=== PATIENT | male | born 1985 | race Caucasian/White ===

== ENCOUNTER 2017-06-05 22:31 | Inpatient (IN) ==
[2017-09-19] MEDS ORDERED: Beneprotein Powder Packet NG/OG ONE ×2 (01:00→09:00)
[2017-09-19] MEDS ORDERED: Beneprotein Powder Packet G-TUBE ONE (01:00)
[2017-09-19] MEDS ORDERED: RESP: Racemic Epinephrine 2.25% 0.5 ML Neb NEB PRN (01:00)
[2017-09-19] MEDS ORDERED: Bisacodyl 10 MG Supp RECTAL PRN (01:00)
[2017-09-19] MEDS: Amantadine Liq 100 MG/10 ML UDC PO SCH ×2 (05:46→12:26)
[2017-09-19] MEDS: Sod Chloride 0.9% Inj 1,000 ML IV.SIG SCH ×3 (05:47→15:26)
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
[2017-09-19] MEDS ORDERED: Famotidine 20 MG Tablet G-TUBE SCH (09:00)
[2017-09-19 09:55] LABS: Baso # (Auto) 0.1 th/mm3 (0.0-0.2); Baso % (Auto) 0.9 % (0.0-2.0); Eos # (Auto) 0.1 th/mm3 (0.0-0.4); Eos % (Auto) 2.1 % (0.0-4.0); Hematocrit 31.1 % (39.0-51.0); Hemoglobin 10.5 gm/dL (13.0-17.0); Lymph # (Auto) 1.2 th/mm3 (1.0-4.8); Mean Corpuscular HGB Conc 33.8 % (32.0-36.0); Mean Corpuscular Hemoglobin 29.9 pg (27.0-34.0); Mean Corpuscular Volume 88.4 fL (80.0-100.0); Mean Platelet Volume 10.5 fL (7.0-11.0); Mono # (Auto) 0.4 th/mm3 (0.0-0.9); Mono % (Auto) 6.3 % (0.0-8.0); Neut # (Auto) 4.8 th/mm3 (1.8-7.7); Neut % (Auto) 72.7 % (16.0-70.0); Platelet Count 173 th/mm3 (150-450); Red Blood Count 3.51 mil/mm3 (4.50-5.90); Red Cell Distribution Width 15.4 % (11.6-17.2); White Blood Count 6.5 th/mm3 (4.0-11.0)
[2017-09-19] MEDS: Docusate Sodium Liq 100 MG/10 ML UDC NG/OG PRN (10:12)
[2017-09-19] MEDS: Hyoscyamine Liq Drops 0.125 MG/ML 15 ML Bottle NG/OG PRN (10:13)
[2017-09-19] MEDS: Artificial Tears Opth Oint 3.5 GM Tube EACH EYE SCH ×2 (10:14→21:03)
[2017-09-19] MEDS: Baclofen 10 MG Tablet NG/OG SCH ×2 (10:14→21:48)
[2017-09-19] MEDS: Enoxaparin Inj 40 MG/0.4 ML Syringe SQ SCH (10:15)
[2017-09-19] MEDS: Famotidine 20 MG Tablet NG/OG SCH ×2 (10:17→21:02)
[2017-09-19 12:10] LABS: Anion Gap 1 meq/L (5-15); Blood Urea Nitrogen 9 mg/dL (7-18); Calcium 9.3 mg/dL (8.5-10.1); Carbon Dioxide 36.2 meq/L (21.0-32.0); Chloride 106 meq/L (98-107); Glomerular Filtration Rate Greater Than 89 mL/min (>89); Glucose,Random 87 mg/dL (74-106); Potassium 3.4 meq/L (3.5-5.1); Sodium 143 meq/L (136-145)
[2017-09-19] MEDS: Acetaminophen 160 MG/5 ML Liq 5 ML UDC NG/OG SCH ×2 (13:24→21:49)
[2017-09-19] MEDS ORDERED: Potassium Chloride 20 MEQ Pwd Pkt NG/OG ONE (16:00)
[2017-09-19] MEDS ORDERED: Vancomycin Consult Pharmacy 1 EACH OTHER SCH (16:00)
[2017-09-19] MEDS ORDERED: Vancomycin Inj 1,000 MG in Sodium Chlor 0.9% Inj 250 ML IV.SIG SCH (17:00)
[2017-09-19] MEDS ORDERED: Pharmacy Ordered Lab Info OTHER ONE (17:00)
[2017-09-19] MEDS: Vancomycin Inj 1,000 MG in Sodium Chlor 0.9% Inj 250 ML IV.SIG SCH (18:00)
[2017-09-20] MEDS: Baclofen 10 MG Tablet NG/OG SCH ×3 (00:41→16:32)
[2017-09-20] MEDS: Acetaminophen 160 MG/5 ML Liq 5 ML UDC NG/OG SCH ×2 (00:42→13:07)
[2017-09-20] MEDS: Sod Chloride 0.9% Inj 1,000 ML IV.SIG SCH ×3 (00:43→17:56)
[2017-09-20] MEDS: Vancomycin Inj 1,000 MG in Sodium Chlor 0.9% Inj 250 ML IV.SIG SCH ×3 (02:35→17:57)
[2017-09-20] MEDS: Amantadine Liq 100 MG/10 ML UDC PO SCH ×2 (05:38→13:05)
[2017-09-20 07:37] LABS: Anion Gap 8 meq/L (5-15); Blood Urea Nitrogen 8 mg/dL (7-18); Calcium 9.1 mg/dL (8.5-10.1); Carbon Dioxide 26.7 meq/L (21.0-32.0); Chloride 108 meq/L (98-107); Glomerular Filtration Rate Greater Than 89 mL/min (>89); Glucose,Random 81 mg/dL (74-106); Potassium 3.8 meq/L (3.5-5.1); Sodium 143 meq/L (136-145)
[2017-09-20] MEDS: Famotidine 20 MG Tablet NG/OG SCH ×2 (08:15→20:04)
[2017-09-20] MEDS: Enoxaparin Inj 40 MG/0.4 ML Syringe SQ SCH (11:00)
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
[2017-09-20] MEDS: Beneprotein Powder Packet PO SCH (16:07)
[2017-09-20] MEDS ORDERED: Pharmacy Ordered Lab Info OTHER ONE (17:45)
[2017-09-20] MEDS: Artificial Tears Opth Oint 3.5 GM Tube EACH EYE SCH (20:06)
[2017-09-21] MEDS: Acetaminophen 160 MG/5 ML Liq 5 ML UDC NG/OG SCH ×2 (01:00→12:41)
[2017-09-21] MEDS: Baclofen 10 MG Tablet NG/OG SCH ×4 (01:00→18:04)
[2017-09-21] MEDS: Vancomycin Inj 1,000 MG in Sodium Chlor 0.9% Inj 250 ML IV.SIG SCH ×3 (04:05→18:06)
[2017-09-21] MEDS: Amantadine Liq 100 MG/10 ML UDC PO SCH ×2 (06:18→12:41)
[2017-09-21] MEDS: Beneprotein Powder Packet PO SCH ×4 (06:19→22:22)
[2017-09-21] MEDS: Famotidine 20 MG Tablet NG/OG SCH ×2 (09:24→20:04)
[2017-09-21] MEDS: Enoxaparin Inj 40 MG/0.4 ML Syringe SQ SCH (12:41)
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
[2017-09-21] MEDS: Sod Chloride 0.9% Inj 1,000 ML IV.SIG SCH (15:45)
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
[2017-09-21] MEDS: Artificial Tears Opth Oint 3.5 GM Tube EACH EYE SCH (20:05)
[2017-09-22] MEDS: Baclofen 10 MG Tablet NG/OG SCH ×3 (01:04→17:37)
[2017-09-22] MEDS: Acetaminophen 160 MG/5 ML Liq 5 ML UDC NG/OG SCH ×2 (01:05→13:16)
[2017-09-22] MEDS: Vancomycin Inj 1,000 MG in Sodium Chlor 0.9% Inj 250 ML IV.SIG SCH ×3 (01:31→17:38)
[2017-09-22] MEDS: Amantadine Liq 100 MG/10 ML UDC PO SCH ×2 (05:27→13:15)
[2017-09-22] MEDS: Famotidine 20 MG Tablet NG/OG SCH ×2 (08:56→20:41)
[2017-09-22] MEDS: Beneprotein Powder Packet PO SCH ×3 (08:57→22:17)
[2017-09-22] MEDS: Enoxaparin Inj 40 MG/0.4 ML Syringe SQ SCH (12:18)
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
[2017-09-22] MEDS: Sod Chloride 0.9% Inj 1,000 ML IV.SIG SCH (17:37)
[2017-09-22] MEDS: Artificial Tears Opth Oint 3.5 GM Tube EACH EYE SCH (20:42)
[2017-09-23] MEDS: Acetaminophen 160 MG/5 ML Liq 5 ML UDC NG/OG SCH ×2 (00:34→13:01)
[2017-09-23] MEDS: Baclofen 10 MG Tablet NG/OG SCH ×3 (00:34→18:13)
[2017-09-23] MEDS: Vancomycin Inj 1,000 MG in Sodium Chlor 0.9% Inj 250 ML IV.SIG SCH ×3 (01:27→18:14)
[2017-09-23] MEDS: Amantadine Liq 100 MG/10 ML UDC PO SCH ×2 (05:47→13:01)
[2017-09-23] MEDS: Beneprotein Powder Packet PO SCH ×3 (06:14→22:24)
[2017-09-23] MEDS: Famotidine 20 MG Tablet NG/OG SCH ×2 (08:43→20:16)
[2017-09-23] MEDS: Enoxaparin Inj 40 MG/0.4 ML Syringe SQ SCH (11:53)
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
[2017-09-23] MEDS: Sod Chloride 0.9% Inj 1,000 ML IV.SIG SCH (18:13)
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
[2017-09-23] MEDS: Artificial Tears Opth Oint 3.5 GM Tube EACH EYE SCH (20:17)
[2017-09-24] MEDS: Baclofen 10 MG Tablet NG/OG SCH ×3 (00:06→16:34)
[2017-09-24] MEDS: Acetaminophen 160 MG/5 ML Liq 5 ML UDC NG/OG SCH ×2 (00:06→20:06)
[2017-09-24] MEDS: Vancomycin Inj 1,000 MG in Sodium Chlor 0.9% Inj 250 ML IV.SIG SCH ×3 (01:28→10:03)
[2017-09-24] MEDS ORDERED: Pharmacy Ordered Lab Info OTHER ONE (01:45)
[2017-09-24] MEDS: Amantadine Liq 100 MG/10 ML UDC PO SCH (05:27)
[2017-09-24] MEDS: Beneprotein Powder Packet PO SCH (06:26)
[2017-09-24] MEDS: Hyoscyamine Liq Drops 0.125 MG/ML 15 ML Bottle NG/OG PRN (10:03)
[2017-09-24] MEDS: Famotidine 20 MG Tablet NG/OG SCH ×2 (10:04→20:53)
[2017-09-24] MEDS: Enoxaparin Inj 40 MG/0.4 ML Syringe SQ SCH (10:04)
[2017-09-24] MEDS: Amantadine Liq 100 MG/10 ML UDC NG/OG SCH (12:00)
[2017-09-24] MEDS: Beneprotein Powder Packet NG/OG SCH ×2 (15:00→23:16)
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
[2017-09-24 20:21] LABS: Albumin 3.1 g/dL (3.4-5.0); Anion Gap 11 meq/L (5-15); Aspartate Aminotransferase 13 U/L (15-37); Blood Urea Nitrogen 12 mg/dL (7-18); Calcium 9.6 mg/dL (8.5-10.1); Carbon Dioxide 26.8 meq/L (21.0-32.0); Chloride 107 meq/L (98-107); Glomerular Filtration Rate Greater Than 89 mL/min (>89); Glucose,Random 118 mg/dL (74-106); Potassium 3.3 meq/L (3.5-5.1); Sodium 145 meq/L (136-145)
[2017-09-24 20:22] LABS: Alanine Aminotransferase 32 U/L (12-78)
[2017-09-24 20:24] LABS: Alkaline Phosphatase 124 U/L (45-117); Total Protein 6.8 g/dL (6.4-8.2)
[2017-09-24] MEDS: Artificial Tears Opth Oint 3.5 GM Tube EACH EYE SCH (20:53)
[2017-09-25] MEDS: Baclofen 10 MG Tablet NG/OG SCH ×3 (02:09→17:00)
[2017-09-25] MEDS: Amantadine Liq 100 MG/10 ML UDC NG/OG SCH ×2 (06:13→12:00)
[2017-09-25] MEDS: Beneprotein Powder Packet NG/OG SCH ×2 (06:13→15:00)
[2017-09-25 09:22] LABS: Glomerular Filtration Rate Greater Than 89 mL/min (>89)
[2017-09-25 09:25] LABS: Vancomycin,Random 3.5 Comment
[2017-09-25] MEDS: Famotidine 20 MG Tablet NG/OG SCH ×2 (09:35→21:11)
[2017-09-25] MEDS: Enoxaparin Inj 40 MG/0.4 ML Syringe SQ SCH (10:06)
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
[2017-09-25] MEDS ORDERED: Potassium Chloride 25 MEQ Effervescent Tablet NG/OG ONE (11:15)
[2017-09-25] MEDS: Vancomycin Inj 1,250 MG in Sodium Chlor 0.9% Inj 250 ML IV.SIG SCH (12:00)
[2017-09-25] MEDS: Artificial Tears Opth Oint 3.5 GM Tube EACH EYE SCH (21:13)
[2017-09-26] MEDS: Vancomycin Inj 1,250 MG in Sodium Chlor 0.9% Inj 250 ML IV.SIG SCH ×3 (00:34→23:53)
[2017-09-26] MEDS: Amantadine Liq 100 MG/10 ML UDC NG/OG SCH ×2 (05:57→12:00)
[2017-09-26] MEDS: Beneprotein Powder Packet NG/OG SCH ×4 (07:25→23:54)
[2017-09-26] MEDS: Famotidine 20 MG Tablet NG/OG SCH ×2 (08:24→20:24)
[2017-09-26] MEDS: Baclofen 10 MG Tablet NG/OG SCH ×3 (08:24→19:58)
[2017-09-26 10:39] LABS: Anion Gap 10 meq/L (5-15); Blood Urea Nitrogen 9 mg/dL (7-18); Calcium 9.8 mg/dL (8.5-10.1); Chloride 104 meq/L (98-107); Glomerular Filtration Rate Greater Than 89 mL/min (>89); Glucose,Random 93 mg/dL (74-106); Potassium 3.7 meq/L (3.5-5.1); Sodium 142 meq/L (136-145)
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
[2017-09-26] MEDS: Enoxaparin Inj 40 MG/0.4 ML Syringe SQ SCH (11:00)
--- NOTE | 2017-09-26 17:25 | MG ---
cc: Harrison Allred MD, PhD DATE OF STUDY: 09/26/2017. TEST NUMBER: [id number]. TECHNIQUE: A 17-channel EEG. DESCRIPTION: The background rhythm shows generalized slowing in the theta frequency at 6 Hz. No lateralizing features identified. There are no epileptiform discharges present. There is some muscle artifact present. Photic results in a symmetric driving response. INTERPRETATION: Mildly abnormal study consistent with a mild degree of encephalopathy. No epileptiform features are seen. Harrison Alrled MD, PhD KO/TL , 12:21 PM , 12:47 PM
[2017-09-26] MEDS: Artificial Tears Opth Oint 3.5 GM Tube EACH EYE SCH (20:24)
[2017-09-27] MEDS: Baclofen 10 MG Tablet NG/OG SCH ×3 (01:04→16:09)
[2017-09-27] MEDS: Amantadine Liq 100 MG/10 ML UDC NG/OG SCH ×2 (05:54→12:27)
[2017-09-27] MEDS: Beneprotein Powder Packet NG/OG SCH ×3 (06:06→23:00)
[2017-09-27] MEDS: Famotidine 20 MG Tablet NG/OG SCH ×2 (08:42→22:04)
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
[2017-09-27 11:44] LABS: Baso # (Auto) 0.1 th/mm3 (0.0-0.2); Baso % (Auto) 1.5 % (0.0-2.0); Eos # (Auto) 0.2 th/mm3 (0.0-0.4); Eos % (Auto) 4.7 % (0.0-4.0); Hemoglobin 11.7 gm/dL (13.0-17.0); Lymph # (Auto) 1.3 th/mm3 (1.0-4.8); Lymph % (Auto) 26.4 % (9.0-44.0); Mean Corpuscular HGB Conc 33.4 % (32.0-36.0); Mean Corpuscular Hemoglobin 29.7 pg (27.0-34.0); Mean Corpuscular Volume 89.1 fL (80.0-100.0); Mean Platelet Volume 9.9 fL (7.0-11.0); Mono # (Auto) 0.4 th/mm3 (0.0-0.9); Mono % (Auto) 8.2 % (0.0-8.0); Neut % (Auto) 59.2 % (16.0-70.0); Platelet Count 193 th/mm3 (150-450); Red Blood Count 3.93 mil/mm3 (4.50-5.90); Red Cell Distribution Width 15.7 % (11.6-17.2); White Blood Count 5.1 th/mm3 (4.0-11.0)
[2017-09-27] MEDS ORDERED: Pharmacy Ordered Lab Info OTHER ONE (11:45)
[2017-09-27] MEDS: Enoxaparin Inj 40 MG/0.4 ML Syringe SQ SCH (12:26)
[2017-09-27] MEDS: Vancomycin Inj 1,250 MG in Sodium Chlor 0.9% Inj 250 ML IV.SIG SCH (12:27)
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
[2017-09-27 12:50] LABS: Anion Gap 10 meq/L (5-15); Blood Urea Nitrogen 10 mg/dL (7-18); Calcium 10.4 mg/dL (8.5-10.1); Carbon Dioxide 28.1 meq/L (21.0-32.0); Chloride 104 meq/L (98-107); Glomerular Filtration Rate Greater Than 89 mL/min (>89); Glucose,Random 90 mg/dL (74-106); Sodium 142 meq/L (136-145)
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
[2017-09-27] MEDS: Vancomycin Inj 1,000 MG in Sodium Chlor 0.9% Inj 250 ML IV.SIG SCH (20:00)
[2017-09-27] MEDS: Artificial Tears Opth Oint 3.5 GM Tube EACH EYE SCH (21:00)
[2017-09-28] MEDS: Baclofen 10 MG Tablet NG/OG SCH ×3 (01:00→17:06)
[2017-09-28] MEDS: Vancomycin Inj 1,000 MG in Sodium Chlor 0.9% Inj 250 ML IV.SIG SCH (04:28)
[2017-09-28] MEDS: Amantadine Liq 100 MG/10 ML UDC NG/OG SCH ×2 (06:32→13:46)
[2017-09-28] MEDS: Famotidine 20 MG Tablet NG/OG SCH ×2 (08:37→21:22)
[2017-09-28] MEDS: Beneprotein Powder Packet NG/OG SCH ×2 (08:39→17:06)
[2017-09-28] MEDS: Enoxaparin Inj 40 MG/0.4 ML Syringe SQ SCH (10:42)
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
[2017-09-28] MEDS ORDERED: Ciprofloxacin 500 MG Tablet PO SCH (21:00)
[2017-09-28] MEDS: Artificial Tears Opth Oint 3.5 GM Tube EACH EYE SCH (21:00)
[2017-09-29] MEDS: Baclofen 10 MG Tablet NG/OG SCH ×3 (00:39→17:10)
[2017-09-29] MEDS: Beneprotein Powder Packet NG/OG SCH ×4 (01:09→23:21)
[2017-09-29] MEDS ORDERED: Pharmacy Ordered Lab Info OTHER ONE (03:45)
[2017-09-29] MEDS: Amantadine Liq 100 MG/10 ML UDC NG/OG SCH ×2 (05:10→12:09)
[2017-09-29] MEDS: Famotidine 20 MG Tablet NG/OG SCH ×2 (08:59→21:06)
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
[2017-09-29 09:57] LABS: Glomerular Filtration Rate Greater Than 89 mL/min (>89)
[2017-09-29] MEDS: Enoxaparin Inj 40 MG/0.4 ML Syringe SQ SCH ×2 (11:30→12:09)
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
[2017-09-29] MEDS: Artificial Tears Opth Oint 3.5 GM Tube EACH EYE SCH (21:09)
[2017-09-30] MEDS: Baclofen 10 MG Tablet NG/OG SCH ×3 (03:09→16:35)
[2017-09-30] MEDS: Amantadine Liq 100 MG/10 ML UDC NG/OG SCH ×2 (06:16→12:00)
[2017-09-30] MEDS: Beneprotein Powder Packet NG/OG SCH ×3 (06:36→22:59)
[2017-09-30] MEDS: Famotidine 20 MG Tablet NG/OG SCH ×2 (08:45→21:38)
[2017-09-30] MEDS: Enoxaparin Inj 40 MG/0.4 ML Syringe SQ SCH (11:00)
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
[2017-09-30] MEDS: Artificial Tears Opth Oint 3.5 GM Tube EACH EYE SCH (21:40)
[2017-10-01] MEDS: Baclofen 10 MG Tablet NG/OG SCH ×3 (01:22→17:37)
[2017-10-01] MEDS: Amantadine Liq 100 MG/10 ML UDC NG/OG SCH ×2 (05:58→12:00)
[2017-10-01] MEDS: Beneprotein Powder Packet NG/OG SCH ×3 (06:00→23:29)
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
[2017-10-01] MEDS: Famotidine 20 MG Tablet NG/OG SCH ×2 (09:53→21:13)
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
[2017-10-01] MEDS: Artificial Tears Opth Oint 3.5 GM Tube EACH EYE SCH (21:13)
[2017-10-02] MEDS: Baclofen 10 MG Tablet NG/OG SCH ×3 (01:18→17:00)
[2017-10-02] MEDS: Amantadine Liq 100 MG/10 ML UDC NG/OG SCH ×2 (05:58→12:00)
[2017-10-02] MEDS: Beneprotein Powder Packet NG/OG SCH ×3 (06:00→23:00)
[2017-10-02] MEDS: Famotidine 20 MG Tablet NG/OG SCH ×2 (09:00→21:03)
[2017-10-02] MEDS: Enoxaparin Inj 40 MG/0.4 ML Syringe SQ SCH (11:00)
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
[2017-10-02] MEDS: Artificial Tears Opth Oint 3.5 GM Tube EACH EYE SCH (21:00)
[2017-10-03] MEDS: Baclofen 10 MG Tablet NG/OG SCH ×3 (00:30→17:00)
[2017-10-03] MEDS: Amantadine Liq 100 MG/10 ML UDC NG/OG SCH ×2 (05:41→12:00)
[2017-10-03] MEDS: Beneprotein Powder Packet NG/OG SCH ×3 (07:00→23:00)
[2017-10-03] MEDS: Famotidine 20 MG Tablet NG/OG SCH ×2 (09:23→21:47)
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
[2017-10-03] MEDS: Enoxaparin Inj 40 MG/0.4 ML Syringe SQ SCH (11:15)
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
[2017-10-03] MEDS: Artificial Tears Opth Oint 3.5 GM Tube EACH EYE SCH (21:00)
[2017-10-04] MEDS: Baclofen 10 MG Tablet NG/OG SCH ×3 (00:26→16:00)
[2017-10-04] MEDS: Amantadine Liq 100 MG/10 ML UDC NG/OG SCH ×2 (06:47→11:46)
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
--- NOTE | 2017-10-04 07:52 | P.DCO ---
- Home Health Nursing Order: Medical education, Signs/symptoms of disease process, Oxygen administration education (Trach education 4 times a week for 5 weeks ), Medication education-adverse effect, Nursing assessment with vital signs - Certification I have seen patient Colin Luque on 10/04/17. My clinical findings support the need for the requested home health care services because: Limited mobility due to disease progression, Patient has SOB, Deconditioned with increased weakness, Limited ability to care for self, Impaired cognition/ judgement I certify that my clinical findings support that this patient is homebound because: Post-op weakness, Impaired cognitive ability/safety, Unsteady gait/balance, Non- ambulatory: confined to bed or chair
[2017-10-04] MEDS: Beneprotein Powder Packet NG/OG SCH ×3 (08:19→23:20)
[2017-10-04] MEDS: Famotidine 20 MG Tablet NG/OG SCH ×2 (08:20→21:46)
--- NOTE | 2017-10-04 08:33 | P.DCO ---
- Home Health Nursing Order: Medical education, Signs/symptoms of disease process, Oxygen administration education (Trach care 3 times a week for 4 weeks), Medication education-adverse effect, Nursing assessment with vital signs - Certification I have seen patient Colin Luque on 10/04/17. My clinical findings support the need for the requested home health care services because: Limited mobility due to disease progression, Patient has SOB, Deconditioned with increased weakness, Impaired cognition/judgement I certify that my clinical findings support that this patient is homebound because: Post-op weakness, Impaired cognitive ability/safety, Unsteady gait/balance, Non- ambulatory: confined to bed or chair
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
[2017-10-04] MEDS: Enoxaparin Inj 40 MG/0.4 ML Syringe SQ SCH (10:24)
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
[2017-10-04] MEDS: Artificial Tears Opth Oint 3.5 GM Tube EACH EYE SCH (21:49)
[2017-10-05] MEDS: Baclofen 10 MG Tablet NG/OG SCH ×3 (01:28→16:39)
[2017-10-05] MEDS: Beneprotein Powder Packet NG/OG SCH ×3 (06:12→23:28)
[2017-10-05] MEDS: Amantadine Liq 100 MG/10 ML UDC NG/OG SCH ×2 (06:12→12:17)
[2017-10-05] MEDS: Famotidine 20 MG Tablet NG/OG SCH ×2 (08:23→21:29)
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
[2017-10-05] MEDS: Enoxaparin Inj 40 MG/0.4 ML Syringe SQ SCH (12:17)
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
[2017-10-05] MEDS: Artificial Tears Opth Oint 3.5 GM Tube EACH EYE SCH (21:30)
[2017-10-06] MEDS: Baclofen 10 MG Tablet NG/OG SCH ×3 (00:25→16:43)
[2017-10-06] MEDS: Amantadine Liq 100 MG/10 ML UDC NG/OG SCH ×2 (05:41→12:58)
[2017-10-06] MEDS: Beneprotein Powder Packet NG/OG SCH ×3 (06:11→22:39)
[2017-10-06] MEDS: Famotidine 20 MG Tablet NG/OG SCH ×2 (09:34→20:55)
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
[2017-10-06] MEDS: Enoxaparin Inj 40 MG/0.4 ML Syringe SQ SCH (11:28)
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
[2017-10-06] MEDS: Artificial Tears Opth Oint 3.5 GM Tube EACH EYE SCH (20:55)
[2017-10-07] MEDS: Baclofen 10 MG Tablet NG/OG SCH ×3 (00:17→17:19)
[2017-10-07] MEDS: Amantadine Liq 100 MG/10 ML UDC NG/OG SCH ×2 (05:53→11:46)
[2017-10-07] MEDS: Beneprotein Powder Packet NG/OG SCH ×3 (06:28→23:07)
[2017-10-07] MEDS: Famotidine 20 MG Tablet NG/OG SCH ×2 (08:35→20:32)
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
[2017-10-07] MEDS: Enoxaparin Inj 40 MG/0.4 ML Syringe SQ SCH (11:45)
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
[2017-10-07] MEDS: Artificial Tears Opth Oint 3.5 GM Tube EACH EYE SCH (22:47)
[2017-10-08] MEDS: Baclofen 10 MG Tablet NG/OG SCH ×3 (00:22→16:39)
[2017-10-08] MEDS: Amantadine Liq 100 MG/10 ML UDC NG/OG SCH ×2 (06:19→11:00)
[2017-10-08] MEDS: Beneprotein Powder Packet NG/OG SCH ×2 (09:54→15:00)
[2017-10-08] MEDS: Famotidine 20 MG Tablet NG/OG SCH ×2 (09:54→21:02)
[2017-10-08] MEDS: Enoxaparin Inj 40 MG/0.4 ML Syringe SQ SCH (11:00)
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
--- NOTE | 2017-10-08 14:02 | P.PNPAL ---
Palliative care continues to follow along with Mr. Luque for ongoing support, symptom management and assistance with communication. No family at bedside. Spoke with nursing staff who reports all DME to be delivered in the coming days for plan for patient to discharge home with mother. Spoke with Ms. Miller. She is currently at home waiting for his hospital bed to arrive. Reports she will be coming to the hospital sometime this afternoon/evening. No further questions or concerns. Confirmed she has palliative care contact information. Palliative care will continue to follow throughout hospitalization.
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
[2017-10-08] MEDS: Artificial Tears Opth Oint 3.5 GM Tube EACH EYE SCH (22:52)
[2017-10-09] MEDS: Beneprotein Powder Packet NG/OG SCH ×4 (00:45→23:00)
[2017-10-09] MEDS: Baclofen 10 MG Tablet NG/OG SCH ×3 (01:35→17:00)
[2017-10-09] MEDS: Amantadine Liq 100 MG/10 ML UDC NG/OG SCH ×2 (05:26→12:00)
[2017-10-09] MEDS: Hyoscyamine Liq Drops 0.125 MG/ML 15 ML Bottle SL PRN (07:46)
[2017-10-09] MEDS: Famotidine 20 MG Tablet NG/OG SCH ×2 (09:44→21:20)
[2017-10-09] MEDS: Docusate Sodium Liq 100 MG/10 ML UDC NG/OG PRN (09:44)
[2017-10-09] MEDS: Artificial Tears Opth Oint 3.5 GM Tube EACH EYE PRN (09:47)
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
[2017-10-09] MEDS: Enoxaparin Inj 40 MG/0.4 ML Syringe SQ SCH (11:45)
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
[2017-10-09] MEDS: Artificial Tears Opth Oint 3.5 GM Tube EACH EYE SCH (21:22)
[2017-10-10] MEDS: Baclofen 10 MG Tablet NG/OG SCH ×3 (00:41→17:02)
[2017-10-10] MEDS: Beneprotein Powder Packet NG/OG SCH ×3 (06:10→23:10)
[2017-10-10] MEDS: Amantadine Liq 100 MG/10 ML UDC NG/OG SCH ×2 (06:10→12:00)
[2017-10-10] MEDS: Famotidine 20 MG Tablet NG/OG SCH ×2 (09:12→20:03)
[2017-10-10] MEDS: Docusate Sodium Liq 100 MG/10 ML UDC NG/OG PRN (09:12)
[2017-10-10] MEDS: Hyoscyamine Liq Drops 0.125 MG/ML 15 ML Bottle SL PRN ×2 (09:13→16:00)
[2017-10-10] MEDS: Artificial Tears Opth Oint 3.5 GM Tube EACH EYE PRN (09:13)
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
[2017-10-10] MEDS: Enoxaparin Inj 40 MG/0.4 ML Syringe SQ SCH (11:00)
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
[2017-10-10] MEDS: Artificial Tears Opth Oint 3.5 GM Tube EACH EYE SCH (20:04)
[2017-10-10] MEDS: LORazepam 1 MG Tablet G-TUBE PRN (20:06)
[2017-10-11] MEDS: Baclofen 10 MG Tablet NG/OG SCH ×3 (01:23→17:00)
[2017-10-11] MEDS: LORazepam 1 MG Tablet G-TUBE PRN (05:40)
[2017-10-11] MEDS: Amantadine Liq 100 MG/10 ML UDC NG/OG SCH ×2 (05:43→11:47)
[2017-10-11] MEDS: Beneprotein Powder Packet NG/OG SCH ×2 (06:11→16:05)
[2017-10-11] MEDS: Famotidine 20 MG Tablet NG/OG SCH ×2 (08:01→20:43)
[2017-10-11] MEDS: Enoxaparin Inj 40 MG/0.4 ML Syringe SQ SCH (11:13)
--- NOTE | 2017-10-11 11:22 | XR ---
EXAM DATE: 10/11/2017 11:13 AM EDT AGE/SEX: 32 years / Male INDICATIONS: Evaluate trachea tube. CLINICAL DATA: This is the patient's initial encounter. Patient reports that signs and symptoms have been present for 1 day and indicates a pain score of Nonresponsive. MEDICAL/SURGICAL HISTORY: Non-responsive. Non-responsive. COMPARISON: [facility] – [place], CHEST 1V SINGLE AP, 09/27/2017. . FINDINGS: A single AP view of the chest demonstrates the lungs to be symmetrically aerated without evidence of mass, infiltrate or effusion. The cardiomediastinal contours are unremarkable. Osseous structures a re intact. A tracheostomy tube remains in place. This is unchanged in appearance. CONCLUSION: 1. Tracheostomy tube appears unchanged compared to the prior study. 2. No acute cardiopulmonary disease. Electronically signed by: Mike Blanchard MD 10/11/2017 11:20 AM EDT
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
[2017-10-11] MEDS: Artificial Tears Opth Oint 3.5 GM Tube EACH EYE SCH (20:43)
[2017-10-12] MEDS: Beneprotein Powder Packet NG/OG SCH ×4 (00:06→22:42)
[2017-10-12] MEDS: Baclofen 10 MG Tablet NG/OG SCH ×3 (00:07→16:59)
[2017-10-12] MEDS: Amantadine Liq 100 MG/10 ML UDC NG/OG SCH ×2 (06:06→11:09)
[2017-10-12] MEDS: Famotidine 20 MG Tablet NG/OG SCH ×2 (08:03→22:42)
[2017-10-12] MEDS: Enoxaparin Inj 40 MG/0.4 ML Syringe SQ SCH (10:29)
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
--- NOTE | 2017-10-12 15:29 | P.PNPAL ---
Palliative care received call from Gayatri at Dr. Rea's office. Received palliative care contact information from patient's mother. Reports Mr. Luque has a court order to be examined by guardianship examining committee for assessment of capacity and guardianship need. Dr. Cummings looking to schedule a time to visit Mr. Luque for assessment. Requested copy of court order be faxed to palliative care, . Dr. Rea (#[phone]) tentatively scheduled to visit Wednesday10/22/17 from 1pm-3pm for cognition assessment. Palliative care will continue to follow throughout hospitalization.
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
[2017-10-12] MEDS: Artificial Tears Opth Oint 3.5 GM Tube EACH EYE SCH (21:41)
[2017-10-12] MEDS: LORazepam 1 MG Tablet G-TUBE PRN (23:38)
[2017-10-13] MEDS: Baclofen 10 MG Tablet NG/OG SCH ×2 (00:20→08:10)
[2017-10-13] MEDS: Amantadine Liq 100 MG/10 ML UDC NG/OG SCH ×2 (05:15→12:00)
[2017-10-13] MEDS: Beneprotein Powder Packet NG/OG SCH ×2 (06:01→23:22)
[2017-10-13] MEDS: Famotidine 20 MG Tablet NG/OG SCH ×2 (08:10→21:29)
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
[2017-10-13] MEDS: Enoxaparin Inj 40 MG/0.4 ML Syringe SQ SCH (11:59)
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
[2017-10-13] MEDS: Artificial Tears Opth Oint 3.5 GM Tube EACH EYE SCH (21:30)
[2017-10-14] MEDS: Baclofen 10 MG Tablet NG/OG SCH ×3 (00:14→17:44)
[2017-10-14] MEDS: Amantadine Liq 100 MG/10 ML UDC NG/OG SCH ×2 (05:12→11:01)
[2017-10-14] MEDS: Famotidine 20 MG Tablet NG/OG SCH ×2 (08:24→20:30)
[2017-10-14] MEDS: Beneprotein Powder Packet NG/OG SCH ×2 (08:26→14:06)
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
[2017-10-14] MEDS: Enoxaparin Inj 40 MG/0.4 ML Syringe SQ SCH (11:00)
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
[2017-10-15] MEDS: Beneprotein Powder Packet NG/OG SCH ×5 (00:38→23:02)
[2017-10-15] MEDS: Baclofen 10 MG Tablet NG/OG SCH ×4 (00:39→17:00)
[2017-10-15] MEDS: LORazepam 1 MG Tablet G-TUBE PRN ×3 (00:39→21:11)
[2017-10-15] MEDS: Artificial Tears Opth Oint 3.5 GM Tube EACH EYE SCH ×2 (04:45→21:13)
[2017-10-15] MEDS: Amantadine Liq 100 MG/10 ML UDC NG/OG SCH ×2 (05:31→12:00)
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
[2017-10-15] MEDS: Famotidine 20 MG Tablet NG/OG SCH ×2 (09:55→21:12)
[2017-10-15] MEDS: Enoxaparin Inj 40 MG/0.4 ML Syringe SQ SCH (11:00)
[2017-10-15] MEDS: Sulfamethoxazole/Trimethoprim 400/80 MG Tablet PO SCH (21:10)
[2017-10-16] MEDS: Baclofen 10 MG Tablet NG/OG SCH ×3 (03:53→17:33)
[2017-10-16] MEDS: Amantadine Liq 100 MG/10 ML UDC NG/OG SCH ×2 (05:33→12:00)
[2017-10-16] MEDS: Docusate Sodium Liq 100 MG/10 ML UDC NG/OG PRN (05:36)
[2017-10-16] MEDS: Beneprotein Powder Packet NG/OG SCH ×2 (06:34→14:00)
[2017-10-16] MEDS: Famotidine 20 MG Tablet NG/OG SCH (10:20)
[2017-10-16] MEDS: LORazepam 1 MG Tablet G-TUBE PRN (10:20)
[2017-10-16] MEDS: Enoxaparin Inj 40 MG/0.4 ML Syringe SQ SCH (10:20)
[2017-10-16] MEDS: Sulfamethoxazole/Trimethoprim 400/80 MG Tablet PO SCH (10:20)
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
[2017-10-17] MEDS: Beneprotein Powder Packet NG/OG SCH ×4 (00:07→23:00)
[2017-10-17] MEDS: Sulfamethoxazole/Trimethoprim 400/80 MG Tablet PO SCH ×3 (00:07→21:00)
[2017-10-17] MEDS: Artificial Tears Opth Oint 3.5 GM Tube EACH EYE SCH ×2 (00:07→21:00)
[2017-10-17] MEDS: Baclofen 10 MG Tablet NG/OG SCH ×3 (00:07→17:41)
[2017-10-17] MEDS: Famotidine 20 MG Tablet NG/OG SCH ×3 (00:07→21:00)
[2017-10-17] MEDS: Amantadine Liq 100 MG/10 ML UDC NG/OG SCH ×2 (06:52→12:00)
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
[2017-10-17] MEDS: Enoxaparin Inj 40 MG/0.4 ML Syringe SQ SCH (10:28)
[2017-10-18] MEDS: Baclofen 10 MG Tablet NG/OG SCH ×3 (01:00→17:12)
[2017-10-18] MEDS: Amantadine Liq 100 MG/10 ML UDC NG/OG SCH ×2 (06:28→12:34)
[2017-10-18] MEDS: Beneprotein Powder Packet NG/OG SCH ×2 (06:30→15:30)
[2017-10-18] MEDS: Sulfamethoxazole/Trimethoprim 400/80 MG Tablet PO SCH ×2 (09:11→23:53)
[2017-10-18] MEDS: Famotidine 20 MG Tablet NG/OG SCH ×2 (09:12→23:53)
[2017-10-18 11:01] LABS: Baso # (Auto) 0.1 th/mm3 (0.0-0.2); Baso % (Auto) 1.1 % (0.0-2.0); Eos # (Auto) 0.2 th/mm3 (0.0-0.4); Eos % (Auto) 3.6 % (0.0-4.0); Hemoglobin 11.5 gm/dL (13.0-17.0); Lymph # (Auto) 1.4 th/mm3 (1.0-4.8); Lymph % (Auto) 27.4 % (9.0-44.0); Mean Corpuscular Hemoglobin 29.7 pg (27.0-34.0); Mean Corpuscular Volume 90.2 fL (80.0-100.0); Mean Platelet Volume 10.6 fL (7.0-11.0); Mono # (Auto) 0.3 th/mm3 (0.0-0.9); Mono % (Auto) 5.5 % (0.0-8.0); Neut # (Auto) 3.2 th/mm3 (1.8-7.7); Neut % (Auto) 62.4 % (16.0-70.0); Platelet Count 179 th/mm3 (150-450); Red Blood Count 3.88 mil/mm3 (4.50-5.90); Red Cell Distribution Width 14.6 % (11.6-17.2); White Blood Count 5.1 th/mm3 (4.0-11.0)
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
[2017-10-18 11:21] LABS: Anion Gap 9 meq/L (5-15); Blood Urea Nitrogen 20 mg/dL (7-18); Calcium 10.4 mg/dL (8.5-10.1); Carbon Dioxide 29.4 meq/L (21.0-32.0); Chloride 105 meq/L (98-107); Glomerular Filtration Rate Greater Than 89 mL/min (>89); Glucose,Random 92 mg/dL (74-106); Potassium 3.9 meq/L (3.5-5.1); Sodium 143 meq/L (136-145)
[2017-10-18] MEDS: Enoxaparin Inj 40 MG/0.4 ML Syringe SQ SCH (12:03)
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
[2017-10-18] MEDS: Artificial Tears Opth Oint 3.5 GM Tube EACH EYE SCH (23:59)
[2017-10-19] MEDS: Beneprotein Powder Packet NG/OG SCH ×4 (00:01→23:00)
[2017-10-19] MEDS: Baclofen 10 MG Tablet NG/OG SCH ×3 (02:49→18:03)
[2017-10-19] MEDS: LORazepam 1 MG Tablet G-TUBE PRN (03:13)
[2017-10-19] MEDS: Amantadine Liq 100 MG/10 ML UDC NG/OG SCH ×2 (06:03→11:19)
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
[2017-10-19] MEDS: Sulfamethoxazole/Trimethoprim 400/80 MG Tablet PO SCH ×2 (09:48→20:56)
[2017-10-19] MEDS: Famotidine 20 MG Tablet NG/OG SCH ×2 (09:48→20:56)
[2017-10-19] MEDS: Enoxaparin Inj 40 MG/0.4 ML Syringe SQ SCH (10:45)
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
--- NOTE | 2017-10-19 13:32 | P.PNPAL ---
Attempted to contact Dr. Rea's office to inform them of pending discharge possibly today. Left message requesting call back. Also requested copy of court order for guardianship committee assessment be faxed to palliative care as it was never received. Court . Dr. Rea (#[phone]) was tentatively scheduled to visit Wednesday10/22/17 from 1pm-3pm for cognition assessment. However, given patient's pending discharge status encouraged office to contact patient's mother to coordinate a meeting. Palliative care will continue to follow throughout hospitalization.
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
[2017-10-19] MEDS: Artificial Tears Opth Oint 3.5 GM Tube EACH EYE SCH (21:03)
[2017-10-20] MEDS: Baclofen 10 MG Tablet NG/OG SCH ×2 (02:47→10:04)
[2017-10-20] MEDS: Amantadine Liq 100 MG/10 ML UDC NG/OG SCH ×2 (05:17→13:12)
[2017-10-20] MEDS: Beneprotein Powder Packet NG/OG SCH (06:40)
[2017-10-20] MEDS: Enoxaparin Inj 40 MG/0.4 ML Syringe SQ SCH (10:04)
[2017-10-20] MEDS: Sulfamethoxazole/Trimethoprim 400/80 MG Tablet PO SCH (10:04)
[2017-10-20] MEDS: Famotidine 20 MG Tablet NG/OG SCH (10:05)
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
== END 2017-10-20 17:35 | disposition home health service (06) ==
LOC: H4EN 22:46 → H7ONC 10-14 16:53
PROVIDERS: ADMIT Hospitalist; ATTEND Hospitalist